=== PATIENT | male | born 1940 | race Two or more races ===

== ENCOUNTER 2018-10-08 09:51 | Inpatient (IN) | payer OTHER ==
[~2018-10-08] VITALS: Ht 160 cm; Wt 81.6 kg
[2018-10-26] MEDS ORDERED: TOPROL XL25 M1 PO (11:06)
[2018-10-26] MEDS ORDERED: LASIX20 MG PO (11:06)
[2018-10-26] MEDS ORDERED: ASA81 MG PO (11:06)
[2018-10-26] MEDS ORDERED: METFORMIN HCL500 MG PO (11:06)
[2018-10-26] MEDS ORDERED: SYNTHROID137 MCG PO (11:07)
[2018-10-26] MEDS ORDERED: OMEPRAZOLE40 MG PO (11:08)
[2018-11-07] MEDS ORDERED: OXYC1TAB9 PO (09:38)
[2018-11-07] MEDS ORDERED: PANTOPRAZOLE SO40 MG PO (09:38)
[2018-11-07] MEDS ORDERED: Intestinex CAP PO (09:38)
[2018-11-07] MEDS ORDERED: HYOSCYAMINE0.125 M1 SL (09:38)
[2018-11-07] MEDS ORDERED: BACTRIM DS TAB1 EACH PO (09:38)
== END 2018-11-07 13:07 | disposition home or self-care (01) | DRG 331 ==
LOC: SURG 10-26 07:00 → O/R 11-04 07:22 → SURG 11-04 08:30
PROVIDERS: ADMIT Surgery
PROC: 07TC4ZZ Resection of Pelvis Lymphatic, Percutaneous Endoscopic Approach (ICD-10-PCS; 2018-11-04)
PROC: 0DTF4ZZ Resection of Right Large Intestine, Percutaneous Endoscopic Approach (ICD-10-PCS; principal; 2018-11-04 08:30)
DX: D12.2 Benign neoplasm of ascending colon (principal)